=== PATIENT | male | born 1995 | race Hispanic/Latino ===

== ENCOUNTER → 2023-06-30 13:44 | Outpatient (CLI) | payer OTHER, SELFPAY ==
--- NOTE | 2023-06-30 13:47 | DI.MRI.S_ITS ---
PROCEDURE: MR HAND RT WO CON INDICATIONS: NEURALGIA AND NEURITIS TECHNIQUE: Noncontrast coronal T1 spin echo and T2 fast spin echo with fat saturation, axial proton density fast spin echo and T2 fast spin echo with fat saturation, sagittal T1 spin echo and STIR through the hand and fingers. COMPARISON: None. FINDINGS: Image quality: Excellent. Bones: The bones are normally aligned, without marrow contusions or fractures. No intra-osseous lesions. No significant arthritic changes. Soft tissues: The flexor and extensor tendons are intact. The median nerve is normal in size and signal intensity within the carpal tunnel. Ulnar nerve appears normal within Guyon's canal. Mildly increased T2-weighted signal is seen within the opponents pollicis muscle. The remainder of the thenar musculature is normal in signal intensity. No fatty infiltration is seen. Visualized muscles otherwise demonstrate normal bulk and internal signal. No intramuscular masses identified. No ganglion cysts. IMPRESSION: 1. Subtle mildly increased signal is seen within the opponens pollicis muscle, which is of uncertain etiology but may be related to early or mild denervation changes versus myositis. 2. No acute trabecular bone injury or fracture. Visualized ligaments and tendons are intact. The visualized portions of the median nerve and ulnar nerve are unremarkable. Approved by: Misha Lynch M.D. on 07/01/2023 at 9:11
== END ==
PROVIDERS: Referring Provider Student in an Organized Health Care Education/Training Program; Visit Provider Student in an Organized Health Care Education/Training Program
DX: M79.2 Neuralgia and neuritis, unspecified (principal)
CPT/HCPCS: 73218